=== PATIENT | female | born 1970 | race Two or more races ===

== ENCOUNTER 2017-01-17 17:54 | Emergency (ER) | payer OTHER ==
[2017-01-17 18:04] VITALS: TEMP 98.2
--- NOTE | 2017-01-17 18:14 | EDPHY ---
H & P Time Seen by Provider: 01/17/17 18:02 HPI/ROS: HPI Fall with bruising involving the right leg. 46-year-old female by private vehicle with her . This patient reports that on January 07 she tripped and fell landing on her lateral right lower extremity. She had a bruise to her right lateral proximal thigh area. This then spread with ecchymosis involving most of her thigh and leg on the lateral aspect right side. She also complains of a tight and tender localized swelling at the point of her thigh that she landed most squarely on that has been getting more tender and swollen over the last couple of days. She denies any right lower extremity pain except for this area. No other extremity pain. She did not hit her head. No neck pain. She has been taking ibuprofen. No other antiplatelet agents. No anticoagulation. ROS: Constitutional: No fever, no chills. No weakness. Eyes: No discharge. No changes in vision. Respiratory: No cough. No shortness of breath. Cardiac: No chest pain, no palpitations. Gastrointestinal: No abdominal pain, no vomiting, no diarrhea. Genitourinary: No hematuria. No dysuria or increased frequency with urination. Musculoskeletal: No back pain. No neck pain. No myalgias or arthralgias. As above. Skin: No rashes. As above. Neurological: No headache. No focal weakness or altered sensation. Past medical history: She denies any significant past medical history. Social history: Here with her . Nonsmoker. No alcohol. Physical Exam: General Appearance: Alert, no distress. This patient is responding to questions appropriately and in full sentences. This patient appears well- hydrated and well-nourished. Head: Normocephalic atraumatic. Face: Facial bones are stable on palpation. Eyes: Pupils equal and round and reactive to light, no pallor or injection. No lid erythema or edema. Neurological: Motor sensory function is intact. Cranial nerves are normal. Cerebellar function intact. Skin: Warm and dry, no rashes. No lacerations, abrasions or contusions. Musculoskeletal: Neck is supple and nontender. The trachea is midline. No midline cervical, thoracic, lumbar or sacral tenderness on palpation. No flank tenderness on palpation. Right lower extremity exam: Significant for diffuse ecchymosis from the proximal lateral right thigh spreading down distally to the ankle. It is circumferential involving her leg and calf. She has normal capillary refill, sensation and pulses distally. She has a tender tight swelling consistent with an abscess versus hematoma which is indurated in about the size of a silver dollar right proximal posterior lateral thigh. There is no associated erythema , fluctuance or warmth to this area. Extremities are symmetrical, full range of motion. Other than noted All joints in the bilateral upper and bilateral lower extremities range without pain or impingement other than noted. No tenderness on palpation of the long bones in the bilateral upper and bilateral lower extremities other than noted. Psychiatric: No agitation. No depression. Database: EKG: Imaging: Right lower extremity ultrasound to evaluate for DVT: Negative for DVT. Results were discussed with staff radiologist Dr. David Callejas. Procedures: Procedure: Hematoma versus Abscess drainage. The patient's hematoma/abscess was located on the right proximal posterior lateral thigh. I obtained verbal consent from the patient to drain the swelling and informed the patient about the possibility of bleeding and pain. The area of greatest swelling was incised with 11 Blade scalpel, a 1 cm incision , and a copious amount of dark venous blood and clot was expressed. I irrigated the wound and placed some packing. The patient tolerated the procedure well. The procedure was performed by myself. Emergency department course: Vital signs reviewed. Above procedure performed. Results of lower extremity ultrasound discussed with the patient. No evidence of infectious process or indications for antibiotics. She feels comfortable going home and I feel she is safe for discharge. She is to return here in 2 days for packing removal and reassessment of the wound area. Immediate return to emergency department precautions reviewed. All of her questions were answered. She was discharged in good condition. Differential Diagnosis: The differential diagnosis on this patient includes but is not limited to right lower extremity contusion, right lower extremity abscess. Fracture, subluxation , dislocation of the right lower extremity, DVT unlikely. This represents a partial list of diagnoses considered. These considerations are based on history , physical exam, past history, reassessment and diagnostic testing. Smoking Status: Never smoked Constitutional: Initial Vital Signs Temperature (C) 36.8 C 01/17/17 18:01 Heart Rate 88 01/17/17 18:01 Respiratory Rate 18 01/17/17 18:01 Blood Pressure 133/106 H 01/17/17 18:01 O2 Sat (%) 98 01/17/17 18:01 O2 Delivery Mode Room Air Allergies/Adverse Reactions: No Known Allergies Allergy (Unverified 10/08/09 20:58) Home Medications: Medication Instructions Recorded Bcp 10/08/09 Medical Decision Making - Diagnostics Imaging Results: Imaging Impressions Extremity Venous Study 01/17/17 18:06 Impression: Negative. No deep venous thrombosis. Findings discussed with Emergency Department physician, Ranjit Ballesteros MD at 01/17/2017 19:17. Departure - Departure Disposition: Home, Routine, Self-Care Clinical Impression: Contusion of right thigh, Hematoma and contusion Condition: Good Instructions: Abscess (ED), Hematoma (ED) Additional Instructions: Read and follow provided instructions. Return to the emergency department here in 2 days for removal of packing and re- evaluation. Return to the emergency department for worsening or persistent bleeding, fever, pain or other serious concerns. Referrals: NONE *PRIMARY CARE P,. [Primary Care Provider] - As per Instructions
[2017-01-17 19:30] VITALS: BP 138/86; PULSE 78; RESP 16; O2SAT 97
== END 2017-01-17 19:26 | disposition home or self-care (01) ==
LOC: CED 17:54
PROC: 0H9HXZZ Drainage of Right Upper Leg Skin, External Approach (ICD-10-PCS; principal; 2017-01-17)
DX: S70.11XA Contusion of right thigh, initial encounter (principal); W01.0XXA Fall on same level from slipping, tripping and stumbling without subsequent striking against object, initial encounter
CPT/HCPCS: 93971-PO

== ENCOUNTER 2017-01-19 14:47 | Emergency (ER) | payer OTHER ==
[2017-01-19 14:59] VITALS: BP 141/89; PULSE 96; RESP 18; TEMP 98.2; O2SAT 95
--- NOTE | 2017-01-19 15:19 | EDPHY ---
H & P Time Seen by Provider: 01/19/17 14:58 HPI/ROS: CHIEF COMPLAINT: Wound check HISTORY OF PRESENT ILLNESS: 46-year-old female seen here 2 days ago and had a large hematoma evacuated from the side of her right thigh. Patient had a significant amount of packing placed. She reports that the leg is feeling better, she has had some continued drainage from the incision site, but overall feels that the thigh is much softer than previously. No fevers. Using only ibuprofen for pain. REVIEW OF SYSTEMS: Aside from elements discussed in the HPI, a comprehensive 10-point review of systems was reviewed and is negative. PAST MEDICAL HISTORY: Patient denies. No history of anticoagulant use or aspirin use. SOCIAL HISTORY: Nonsmoker. GENERAL APPEARANCE: Pleasant, alert, conversant. No distress.. FOCUSED EXAM OF right lower extremity: Ecchymosis is present on the lateral thigh, across the knee, and into the calf. Patient reports this is significantly improved from previously. The thigh compartment soft. 4 mm incision is present on the lateral thigh. Small amount of bloody serosanguineous drainage is present on the dressing. No warmth. No erythema suggestive of cellulitis. Neurovascular exam: Distal neurovascularly intact. Full range of motion at the knee, and ankle. Smoking Status: Never smoked Constitutional: Initial Vital Signs Temperature (C) 36.8 C 01/19/17 14:53 Heart Rate 96 01/19/17 14:53 Respiratory Rate 18 01/19/17 14:53 Blood Pressure 141/89 H 01/19/17 14:53 O2 Sat (%) 95 01/19/17 14:53 Allergies/Adverse Reactions: No Known Allergies Allergy (Verified 01/19/17 14:55) Home Medications: Medication Instructions Recorded MIRENA 01/19/17 MDM/Departure - MDM Procedures: Significant amount of packing (20-30 cm) was easily removed. The hematoma evacuation site was repacked with 5 cm of packing keep the skin incision site open for an additional 24-48 hours. Patient was instructed to remove this packing herself in another 2 days. She tolerated the procedure well. She was discharged in improved condition. Differential Diagnosis: Differential diagnoses for the patient's symptom complex was considered including but not limited to abscess site, hematoma evacuation site, ongoing hematoma, coagulopathy, cellulitis. - Depart Disposition: Home, Routine, Self-Care Clinical Impression: Visit for wound check Condition: Good Instructions: Hematoma (ED) Additional Instructions: I have placed a small amount of packing in the incision. This is mostly to keep the skin from closing too soon. You may pulled this packing out within the next 24-48 hours. After the packing has been removed, you should try to keep the skin incision open for another 1-2 days. You may do this by soaking the leg in water (for example in the bathtub) or letting the water in the shower run across the opening. If you developed fevers or chills, increased swelling in the leg, a reaccumulation of the blood, fevers or chills, or other concerns, you may return to the emergency department or seek care urgently. Referrals: NONE *PRIMARY CARE P,. [Primary Care Provider] - As per Instructions
== END 2017-01-19 15:23 | disposition home or self-care (01) ==
LOC: CED 14:47
DX: Z48.01 Encounter for change or removal of surgical wound dressing (principal)

== ENCOUNTER → 2017-04-10 | Outpatient (CLI) | payer OTHER | LOC: FIMAGING 11:53 | PROVIDERS: ATTEND Obstetrics & Gynecology | DX: N63.21 Unspecified lump in the left breast, upper outer quadrant (principal) ==

== ENCOUNTER → 2017-10-07 | Outpatient (CLI) | payer OTHER | LOC: FIMAGING 09:30 | PROVIDERS: ATTEND Obstetrics & Gynecology | DX: R92.8 Other abnormal and inconclusive findings on diagnostic imaging of breast (principal) ==